=== PATIENT | male | born 1965 | race Two or more races ===

== ENCOUNTER 2025-03-14 18:47 | Emergency (ER) | payer SELFPAY ==
[~2025-03-14] VITALS: Ht 182.9 cm; Wt 129.0 kg
--- NOTE | 2025-03-14 19:13 | ED.PDOC ---
Eye-HPI HPI Comments This is a 60 year old male presenting to the ED with chief complaint of right- sided facial pain, swelling. Patient reports that he has been experiencing intermittent right lower mouth swelling/pain and fever due to decayed teeth on that side for the past 2 months. Patient relays that the swelling and pain worsened on 2 days ago, prompting him to visit his dentist today. Patient states he was advised to come to the ED for IV antibiotics as he may have cellulitis according to the dentist. Patient denies any drainage, bleeding, chills, or ear pain. Chief Complaint: Tooth Pain Time Seen by MD: 19:10 Reviewed Notes: Nurses Notes, Medications, Allergies Allergies: Coded Allergies: NO KNOWN ALLERGIES (Unverified , 03/14/25) Information Source: Patient Mode of Arrival: Ambulatory Timing: Months Duration: Intermittent Prehospital treatment: None Quality: Pain Mouth Location: Right, Lower, Tooth/Teeth Mouth: Right, Lower, Premolar, Molar Onset: Spontaneous Throat Exposed to: None Associated signs and symptoms: Tooth Pain Past Medical History PAST MEDICAL HISTORY: Denies Surgical History: Denies all surgeries Family History Family History: Reviewed,noncontributory to illness Social History Smoker: Non-Smoker Alcohol: Denies ETOH Use Drugs: Denies Drug Use Lives In: Home Constitutional: reports: fever; denies: chills, diaphoresis, fatigue, malaise, sweats, weakness, others EENTM: reports: mouth pain, mouth swelling; denies: blurred vision, double vision, ear bleeding, ear discharge, ear drainage, ear pain, ear ringing, eye pain, eye redness, hearing loss, nasal discharge, nose bleeding, nose conge stion, nose pain, photophobia, tearing, throat pain, throat swelling, voice changes, others Respiratory: denies: cough, hemoptysis, orthopnea, SOB at rest, shortness of breath, SOB with excertion, stridor, wheezing, others Cardiovascular: denies: chest pain, dizzy spells, diaphoresis, Dyspnea on exertion, edema, irregular heart beat, left arm pain, lightheadedness, palpitations, PND, syncope, others Gastrointestinal: denies: abdomen distended, abdominal pain, blood streaked bowels, constipated, diarrhea, dysphagia, difficulty swallowing, hematemesis, melena, nausea, poor appetite, poor fluid intake, rectal bleeding, rectal pain, vomiting, others Genitourinary: denies: burning, dysuria, flank pain, frequency, hematuria, incontinence, penile discharge, penile sore, pain, testicle pain, testicle swel ling, urgency, others Neurological: denies: dizziness, fainting, headache, left sided numbness, left sided weakness, numbness, paresthesia, pre-existing deficit, right sided numbness, right sided weakness, seizure, speech problems, tingling, tremors, weakness, others Musculoskeletal: denies: back pain, gout, joint pain, joint swelling, muscle pain, muscle stiffness, neck pain, others Integumetry: denies: bruises, change in color, change in hair/nails, dryness, laceration, lesions, lumps, rash, wounds, others Allergic/Immunocompromised: denies: Difficulty Healing, Frequent Infections, Hives, Itching, others Hematologic/Lymphatic: denies: anemia, blood clots, easy bleeding, easy bruising, swollen glands, others Endocrine: denies: excessive hunger, excessive sweating, excessive thirst, excessive urination, flushing, intolerance to cold, intolerance to heat, unexplained weight gain, unexplained weight loss, others Psychiatric: denies: anxiety, bipolar disorder, depression, hopeless, panic disorder, schizophrenia, sleepless, suicidal, others All Other Systems: Reviewed and Negative Physical Exam General Appearance: No Apparent Distress, Normal HEENT: Pharynx Normal, TMs Normal, Other (Poor dentition, decayed right lower molar. No obvious palpable fluctuance/signs of periapical abscess) Neck: Full Range of Motion, Non-Tender, Normal, Normal Inspection Respiratory: Chest Non-Tender, Lungs Clear, No Accessory Muscle Use, No Respiratory Distress, Normal Breath Sounds Cardiovascular: No Edema, No JVD, No Murmur, No Gallop, Normal Peripheral Pulses, Regular Rate/Rhythm Breast Exam: Deferred Gastrointestinal: No Organomegaly, Non Tender, No Pulsatile Mass, Normal Bowel Sounds, Soft Genitalia: Deferred Pelvic: Deferred Rectal: Deferred Extremities: No calf tenderness, Normal capillary refill, Normal inspection, Normal range of motion, Non-tender, No pedal edema Musculoskeletal : Apperance: Normal Neurologic: Alert, diagnostic cardiac sonographer II-XII nml as Tested, No Motor Deficits, Normal Affect, Normal Mood, No Sensory Deficits Cerebellar Function: Normal Reflexes: Normal Skin: Dry, Normal Color, Warm, Other (No overlying erythema, warmth, crepitus along the right side of the face) Lymphatic: Other (Submandibular lymphadenopathy) Was a procedure done? Was a procedure done?: No EENT DIFF Eye: N/A X-Ray, Labs, Meds, VS Vital Signs Date Time Temp Pulse Resp B/P (MAP) Pulse Ox O2 Delivery O2 Flow Rate FiO2 03/14/25 21:06 98.6 89 16 147/83 (104) 97 98.6 03/14/25 18:49 98.5 87 18 151/93 98 98.5 Lab Test 03/14/25 19:21 Range/Units White Blood Count 8.5 4.4-10.8 10^3/uL Red Blood Count 5.12 4.5-5.90 10^6/uL Hemoglobin 15.3 13.5-17.5 g/dL Hematocrit 44.4 41.0-53.0 % Mean Corpuscular Volume 86.7 80.0-100.0 fL Mean Corpuscular Hemoglobin 29.9 28.0-32.0 pg Mean Corpuscular Hemoglobin Concent 34.5 32.0-36.0 g/dL Red Cell Distribution Width 13.6 11.8-14.3 % Platelet Count 167 140-450 10^3/uL Mean Platelet Volume 9.5 6.9-10.8 fL Neutrophils (%) (Auto) 61.7 37.0-80.0 % Lymphocytes (%) (Auto) 26.0 10.0-50.0 % Monocytes (%) (Auto) 10.6 0.0-12.0 % Eosinophils (%) (Auto) 1.4 0.0-7.0 % Basophils (%) (Auto) 0.3 0.0-2.0 % Neutrophils # (Auto) 5.3 1.6-8.6 10 ^3/uL Lymphocytes # (Auto) 2.2 0.4-5.4 10 ^3/uL Monocytes # (Auto) 0.9 0-1.3 10 ^3/uL Eosinophils # (Auto) 0.1 0-0.8 10 ^3/uL Basophils # (Auto) 0 0-0.2 10 ^3/uL Nucleated Red Blood Cells 0.0 % Sodium Level 138 136-145 mmol/L Potassium Level 3.9 3.5-5.1 mmol/L Chloride Level 103 98-107 mmol/L Carbon Dioxide Level 28 20-31 mmol/L Anion Gap 7 5-15 Blood Urea Nitrogen 12 9-23 mg/dL Creatinine 0.99 0.700-1.30 mg/dL Glomerular Filtration Rate Calc 88 >90 mL/min BUN/Creatinine Ratio 12.1 10.0-20.0 Serum Glucose 120 H 74-106 mg/dL Lactic Acid Level 1.1 0.4-2.0 mmol/L Calcium Level 9.7 8.7-10.4 mg/dL Time of 1ST Reevaluation: 20:09 Reevaluation 1ST: Unchanged Patient Education/Counseling: Diagnosis, Treatment Family Education/Counseling: No Family Present SEPSIS Sepsis Screen Date sepsis recognized/suspect: Mar 14, 2025 Time Sepsis recognized/suspect: 1850 Recent Procedure: No On Antibiotic Therapy: No Respiratory Rate >20: No Heart Rate >90: No Temp<36 C (96.8 F) or >38.3 C: No SBP <90 or MAP <65 mmHG: No New Acute Mental Status Change: No Is the patient on CPAP, BIPAP,: No Physician Orders Blood Culture (03/14/25 19:03) Maxillofacial With (03/14/25 19:07) Vital Signs Date Time Temp Pulse Resp B/P (MAP) Pulse Ox O2 Delivery O2 Flow Rate FiO2 03/14/25 21:06 98.6 89 16 147/83 (104) 97 98.6 03/14/25 18:49 98.5 87 18 151/93 98 98.5 Laboratory Tests Test 03/14/25 19:21 Lactic Acid Level 1.1 mmol/L (0.4-2.0) White Blood Count 8.5 10^3/uL (4.4-10.8) Departure 1 Departure Time of Disposition: 21:45 (60-year-old male with acute on chronic swelling, discomfort along the right side of the face over the past 2 months. Patient does have poor dentition noted along the right lower dental line, however, no obvious palpable area of fluctuance, periapical abscess. Does have some noted right submandibular lymphadenopathy. CT of the face was performed which shows findings of right-sided taking med falling on her right Tra with some surrounding right platysmal of any active lymph nodes may sialadenitis. Patient is afebrile here. CBC with no evidence of critical leukocytosis. Lactic acid within normal limits. Patient does not appear septic. Findings more likely related to sialadenitis. However, we will be treated with a course of antibiotics. Patient was given an IM Toradol, oral Tylenol your and 1st dose of Augmentin. We will then be discharged with a prescription for a 1 week course of Augmentin. Advised to take NSAIDs as needed for discomfort. Also advised to use sialagogues for probable sialadenitis.) Impression: Primary Impression: Right facial swelling Additional Impression: Submandibular lymphadenopathy Disposition: HOME / SELF CARE / HOMELESS Condition: Stable Additional Instructions: Your CT scan shows a you have findings of sialadenitis, no obvious finding of any dental or facial abscess. However, regardless you were started on a course of antibiotics. Take Tylenol, ibuprofen to help with discomfort. Apply warm compress to the area to help with the swelling. Purchase lemonheads or warheads or other sour candies to help resolve your sialadenitis. e-Prescriptions Ibuprofen (Ibuprofen) 800 Mg Tab 1 TAB PO TID PRN for 10 Days, #30 TAB 1 Refill Prov: ANDREA GALICIA MD 03/14/25 Acetaminophen (Acetaminophen Extra Stren) 500 Mg Tab 1000 MG PO TID for 7 Days, #42 TAB Prov: ANDREA GALICIA MD 03/14/25 Amoxicillin & Pot Clavulanate (AUGMENTIN TABLET) 875 Mg Tb 875 MG PO BID for 7 Days, #14 TAB Prov: ANDREA GALICIA MD 03/14/25 Discharged With: Self Critical Care Note Critical Care Time?: No Stability Stability form required: No Heart Score Heart Score: Heart Score Response (Comments) Value History N/A 0 EKG N/A 0 Age N/A 0 Risk Factors N/A 0 Troponin N/A 0 Total 0 I personally scribed for ANDREA GALICIA MD ([email or web address]) on 03/14/25 at 19:13. Electronically submitted by Johann Roach ([email or web address]). ANDREA GALICIA MD Mar 14, 2025 19:13
[2025-03-14] MEDS ORDERED: KETOROLAC TROMETH 30 MG/ML 1ML VIAL IV ONE (19:15)
[2025-03-14] MEDS ORDERED: AMPICILLIN & SULBACTAM SODIUM 3 GM in SODIUM CHL 0.9% 100 ML IV ONE (19:30)
[2025-03-14 19:51] LABS: Hematocrit 44.4 % (41.0-53.0); Hemoglobin 15.3 g/dL (13.5-17.5); Mean Corpuscular Hemoglobin 29.9 pg (28.0-32.0); Mean Corpuscular Volume 86.7 fL (80.0-100.0); Nucleated Red Blood Cells % 0.0 %
[2025-03-14 19:52] LABS: Chloride 103 mmol/L (98-107); Potassium 3.9 mmol/L (3.5-5.1); Sodium 138 mmol/L (136-145)
[2025-03-14 19:53] LABS: Anion Gap 7 (5-15); Calcium 9.7 mg/dL (8.7-10.4); Carbon Dioxide 28 mmol/L (20-31)
[2025-03-14 19:58] LABS: BUN/Creatinine Ratio 12.1 (10.0-20.0); Blood Urea Nitrogen 12 mg/dL (9-23)
[2025-03-14 19:59] LABS: Glucose 120 mg/dL (74-106)
--- NOTE | 2025-03-14 20:22 | DVH ---
CT MAXILLOFACIAL WITH INDICATION: right submandibular swelling TECHNIQUE: Noncontrast axial images of the facial bones are then obtained along with coronal and sagittal reformatted images. All CT scans at this facility use dose modulation, iterative reconstruction, and/or weight based dosing when appropriate to reduce radiation dose to as low as reasonably achievable. COMPARISON: None FINDINGS: FACIAL BONES: The nasal, lacrimal, inferior nasal madi, and palatine bones are intact. The vomer and perpendicular plate of the ethmoid are intact. The zygomatic bones are intact. The maxilla is intact. The mandible is intact. PARANASAL SINUSES: The bony margins of the paranasal sinuses are intact. Less than 25 percent opacification of bilateral maxillary sinuses with possible inconspicuous air-fluid levels correlate for acute maxillary sinusitis. ORBITS: The right and left globes are intact. The bony margins of the orbits are intact. The extraconal space is intact without inflammatory stranding of the extraconal fat. The extraocular muscles are symmetric. The intraconal space including the optic canal and nerve are symmetric. OTHER: Mild lingual tonsil thickening. Epiglottis is normal in thickness. Significant asymmetric swelling of the right submandibular gland with adjacent right platysma muscle thickening and surrounding likely reactive cervical chain lymphadenopathy and subcutaneous adipose tissue swelling. Imaging findings may be compatible with sialoadenitis. IMPRESSION: 1. Significant asymmetric swelling of the right submandibular gland with adjacent right platysma muscle thickening and surrounding likely reactive cervical chain lymphadenopathy and subcutaneous adipose tissue swelling. 2. Imaging findings may be compatible with sialoadenitis.
[2025-03-14] MEDS ORDERED: AUG875T PO (21:51)
[2025-03-14] MEDS ORDERED: IBUP-1456 PO (21:51)
[2025-03-14] MEDS ORDERED: ACET-6 PO (21:51)
[2025-03-14 22:11] VITALS: BP 153/87; PULSE 90; RESP 14; O2SAT 97
[2025-03-14 22:18] VITALS: TEMP 99.1
[2025-03-14] MEDS: KETOROLAC TROMETH 60MG/2ML VIAL IM ONE (22:18)
[2025-03-14] MEDS: ACETAMINOPHEN 500 MG TAB or CAP PO ONE (22:18)
== END 2025-03-14 22:32 | disposition home or self-care (01) ==
LOC: ER 18:47
DX: R59.1 Generalized enlarged lymph nodes (principal); R51.9 Headache, unspecified
CPT/HCPCS: 36415; 70487; 80048; 83605; 85025; 87040; 96372; 99285; J1885